=== PATIENT | male | born 1985 | race African-American/Black ===

== ENCOUNTER 2016-11-14 01:03 | Emergency (ER) | payer SELFPAY ==
[2016-11-14 04:35] LABS: Urine Drugs of Abuse Note Disclamer
[2016-11-14 04:47] LABS: Basophils % (Auto) 0.6 % (0.0-1.8); Eosinophils % (Auto) 1.3 % (0.0-4.3); Hemoglobin 16.5 gm/dl (11.8-15.2); Mean Corpuscular HGB Conc 34 % (32-34); Mean Corpuscular Hemoglobin 32 pg (28-32); Mean Corpuscular Volume 94 fl (84-94); Platelet Count 220 K/mm3 (140-440); Red Blood Count 5.12 M/mm3 (3.65-5.03); Red Cell Distribution Width 12.5 % (13.2-15.2); White Blood Count 7.7 K/mm3 (4.5-11.0)
[2016-11-14 04:59] LABS: Anion Gap 20 mmol/L; Blood Urea Nitrogen 12 mg/dL (9-20); Calcium 8.9 mg/dL (8.4-10.2); Carbon Dioxide 25 mmol/L (22-30); Chloride 101.8 mmol/L (98-107); Glucose 98 mg/dL (75-100); Potassium 3.6 mmol/L (3.6-5.0); Sodium 143 mmol/L (137-145)
[2016-11-14 05:13] LABS: Bilirubin,Urine NEG (Negative); Blood,Urine NEG (Negative); Ketones,Urine 20 mg/dL (Negative); Leukocyte Esterase,Urine NEG (Negative); Mucus,Urine 3+ /HPF; Nitrite,Urine NEG (Negative); Protein,Urine <15 mg/dL mg/dL (Negative); Urobilinogen,Urine < 2.0 mg/dL (<2.0); WBC,Urine < 1.0 /HPF (0.0-6.0)
--- NOTE | 2016-11-14 13:20 | Emergency Department Report ---
ED Psych HPI - General Chief Complaint: Psych Stated Complaint: MENTAL HEALTH EVALUATION Time Seen by Provider: 11/14/16 13:11 Source: patient Mode of arrival: Ambulatory - History of Present Illness Initial Comments: Patient is a 31-year-old male with a history of schizophrenia presenting to the ER with increased paranoia and suicidal ideations. Patient reports he takes Zyprexa 5 mg for the last 7 years, dosage has been weaned down over the last few years due to increased somnolence. However, patient reports last night he had severe paranoia in reports when he has severe paranoia he has suicidal thoughts and tendencies. Patient also reports hearing voices however he reports heis different between reality and not reality. She currently does not work. Patient currently also lives alone. Otherwise he has been his normal state of health, no fevers chills, nausea, vomiting, headache, dizziness, chest pain, shortness of breath, abdominal pain, extremity swelling or pain, travel, or sick contacts - Related Data Previous Rx's Medication Instructions Recorded Last Taken Type Benztropine [Cogentin] 0.5 mg PO BID #30 tab 11/16/16 Unknown Rx Benztropine [Cogentin] 0.5 mg PO HS #30 tablet 11/16/16 Unknown Rx Olanzapine [Zyprexa] 5 mg PO Q24HR #20 tablet 11/16/16 Unknown Rx Allergies Allergy/AdvReac Type Severity Reaction Status Date / Time No Known Allergies Allergy Verified 11/18/13 06:15 ED Review of Systems ROS: Stated complaint: MENTAL HEALTH EVALUATION Other details as noted in HPI Comment: All other systems reviewed and negative ED Past Medical Hx - Past Medical History Previous Medical History?: Yes Hx Congestive Heart Failure: No Hx Diabetes: No Hx Psychiatric Treatment: Yes (paranoia, and depression per pt.) Hx Asthma: No Hx COPD: No Additional medical history: unknown - Surgical History Past Surgical History?: No Additional Surgical History: unknown - Social History Smoking Status: Never Smoker - Medications Home Medications: Home Medications Medication Instructions Recorded Confirmed Last Taken Type Benztropine [Cogentin] 0.5 mg PO BID #30 tab 11/16/16 Unknown Rx Benztropine [Cogentin] 0.5 mg PO HS #30 tablet 11/16/16 Unknown Rx Olanzapine [Zyprexa] 5 mg PO Q24HR #20 tablet 11/16/16 Unknown Rx ED Physical Exam - General Limitations: No Limitations General appearance: alert, in no apparent distress - Head Head exam: Present: atraumatic, normocephalic - Eye Eye exam: Present: normal appearance, PERRL, EOMI Pupils: Present: normal accommodation - ENT ENT exam: Present: mucous membranes moist - Neck Neck exam: Present: normal inspection - Respiratory Respiratory exam: Present: normal lung sounds bilaterally. Absent: respiratory distress - Cardiovascular Cardiovascular Exam: Present: regular rate, normal rhythm. Absent: systolic murmur, diastolic murmur, rubs, gallop - GI/Abdominal GI/Abdominal exam: Present: soft, normal bowel sounds - Rectal Rectal exam: Present: deferred - Extremities Exam Extremities exam: Present: normal inspection - Back Exam Back exam: Present: normal inspection - Neurological Exam Neurological exam: Present: alert, oriented X3 - Psychiatric Psychiatric exam: Present: normal affect, normal mood, suicidal ideation. Absent: depressed, agitated, anxious, flat affect, homicidal ideation - Skin Skin exam: Present: warm, dry, intact, normal color. Absent: rash ED Course Vital Signs 11/14/16 11/14/16 11/14/16 04:10 12:30 21:37 Temperature 98.1 F 98.7 F 98.6 F Pulse Rate 70 79 80 Respiratory 18 16 20 Rate Blood Pressure 139/96 Blood Pressure 137/88 129/79 [Right] O2 Sat by Pulse 97 99 99 Oximetry 11/15/16 11/15/16 11/16/16 11:04 19:00 08:03 Temperature 98.3 F 98.6 F 98.3 F Pulse Rate 111 H 95 H 70 Respiratory 18 18 20 Rate Blood Pressure Blood Pressure 124/87 121/86 125/85 [Right] O2 Sat by Pulse 98 97 100 Oximetry ED Medical Decision Making - Lab Data Result diagrams: 11/14/16 04:18 11/14/16 04:18 - Medical Decision Making Pt made 1013 Labs reviewed, WNL I reviewed patients Olanzapine 5mg pill bottle, there was no prescription tag on it and the drugs are by one year. Plenty of pills in bottle, doubtful patient is compliant on medications Psych consult appreciated, awaiting to see Dr Aiken for further recs Pt to be discharged home to [facility] with clif jimenes and [facility] follow up as outpatient Critical care attestation.: If time is entered above; I have spent that time in minutes in the direct care of this critically ill patient, excluding procedure time. ED Disposition Clinical Impression: Schizophrenia, Paranoia, Suicidal ideation Disposition: DC-01 TO HOME OR SELFCARE Is pt being admited?: No Condition: Stable Prescriptions: Benztropine [Cogentin] 0.5 mg PO BID #30 tab Olanzapine [Zyprexa] 5 mg PO Q24HR #20 tablet Referrals: DEA COLON MD, PHD [Staff Physician] - ROSE NOLAN [employer]ER-C [Advanced Practice Nurse] - 2-3 Days PRIMARY CARE, [Primary Care Provider] - 3-5 Days Forms: Work/School Release Form(ED)
--- NOTE | 2016-11-15 11:13 | Consultation ---
History of Present Illness - Reason for Consult Consult date: 11/15/16 Reason for consult: Mental Health Evaluation Requesting physician: LINH SHELLEY - Chief Complaint Chief complaint: "Need more medication" - History of Present Psychiatric Illness Patient is a 31-year-old male with a history of schizophrenia presenting to the ER with increased paranoia and suicidal ideations. Today patient is calm and cooperative during assessment. He stated that he came to [facility], because he felt paranoid. He stated that he take Zyprexa 5 mg HS for schizophrenia. He stated that he finally got some rest last night and feel better. He stated that his current Zyprexa regimen has . He stated that he has not seen a psychiatrist in a year. He denies SI/HI's and depression symptoms. He admit to intermittent auditory hallucinations. He denies recreational drug use and excessive alcohol consumption. Medications and Allergies Allergies Allergy/AdvReac Type Severity Reaction Status Date / Time No Known Allergies Allergy Verified 11/18/13 06:15 Home Medications Medication Instructions Recorded Confirmed Last Taken Type No Known Home Medications [No 11/21/13 11/14/16 Unknown History Reported Home Medications] Mental Status Exam - Vital signs Last Vital Signs Temp 98.3 F 11/15/16 11:04 Pulse 111 H 11/15/16 11:04 Resp 18 11/15/16 11:04 BP 124/87 11/15/16 11:04 Pulse Ox 98 11/15/16 11:04 - Exam Narrative exam: ROS (-) psychosis MSE: Appearance: calm, cooperative Behavior: good eye contact Speech: regular rate and tone Mood: "okay" Affect: congruent to mood Thought Process: linear Thought Content: denies SI/HI's and AH's (intermittently) Motor Activity: ambulatory Cognition: A/O x3 Insight: fair Judgment: fair Results Result Diagrams: 11/14/16 04:18 11/14/16 04:18 All other labs normal. Assessment and Plan Assessment and plan: Impression: Historial Dx Schizophrenia Paranoid Type. Today patient is calm and cooperative during assessment. He stated that he came to [facility] because he felt paranoid. Intermittent auditory hallucinations. Denies SI/HI's. Recommendation/Plan: Evaluate 1013 in 24 hours and gather collateral for proper dispo. Start Zyprexa 5 mg PO HS for Schizophrenia and Cogentin 0.5 mg PO HS for EPS prevention. Discussed possible metabolic side effects of antipsychotics with patient.
[2016-11-15] MEDS ORDERED: COGENTIN PO SCH (22:00)
[2016-11-16 08:04] VITALS: BP 125/85
--- NOTE | 2016-11-16 14:35 | Progress Note ---
Subjective - Reason for Consult Consult date: 11/16/16 Reason for consult: follow up - Chief Complaint Chief complaint: "I'm doing better" Patient is a 31-year-old male with a history of schizophrenia presenting to the ER with increased paranoia and suicidal ideations. Today patient is calm and cooperative during assessment. He stated that he came to [facility], because he felt paranoid but today he is feeling better, less paranoid. He reports chronic auditory hallucinations but is not distressed by them and "has gotten used to them." He stated that he has not seen a psychiatrist in a year. He restarted Zyprexa. He denies side effects. He denies SI/HI's and depression symptoms. He is interested in outpatient treatment. He also reports he would like to move in with his cousins for a while. Mental Status Exam - Vital signs Last Vital Signs Temp 98.3 F 11/16/16 08:03 Pulse 70 11/16/16 08:03 Resp 20 11/16/16 08:03 BP 125/85 11/16/16 08:03 Pulse Ox 100 11/16/16 08:03 - Exam Narrative exam: MSE: Appearance: calm, cooperative Behavior: good eye contact Speech: regular rate and tone Mood: "good" Affect: appropriate Thought Process: linear Thought Content: denies SI/HI's and AH's (intermittently, non commanding, non distressing) Motor Activity: ambulatory, no abnormal movements Cognition: A/O x3 Insight: fair Judgment: fair Assessment and Plan Impression: History of Dx Schizophrenia, Paranoid Type. Today patient is calm and cooperative during assessment. He stated that he came to [facility] because he felt paranoid. Intermittent auditory hallucinations which are non commanding and not distressing. Paranoia resolving. Denies SI/HI's. There are no acute safety concerns. Recommendation/Plan: Verify cousins will allow him to go to their home. Follow up at the [facility] for outpatient psychiatric treatment. Recommend walk in for open access this week Discharge with prescription for psychiatric medications which he has taken previously, Zyprexa 5mg hs and Cogentin 0.5mg hs
--- NOTE | 2016-11-16 17:12 | Emergency Department Report ---
HPI - General Chief Complaint: Psych Time Seen by Provider: 11/14/16 13:11 ED Past Medical Hx - Past Medical History Previous Medical History?: Yes Hx Congestive Heart Failure: No Hx Diabetes: No Hx Psychiatric Treatment: Yes (paranoia, and depression per pt.) Hx Asthma: No Hx COPD: No Additional medical history: unknown - Surgical History Past Surgical History?: No Additional Surgical History: unknown - Social History Smoking Status: Never Smoker - Medications Home Medications: Home Medications Medication Instructions Recorded Confirmed Last Taken Type Benztropine [Cogentin] 0.5 mg PO HS #30 tablet 11/16/16 Unknown Rx Olanzapine [Zyprexa] 5 mg PO Q24HR #20 tablet 11/16/16 Unknown Rx ED Review of Systems ROS: Stated complaint: MENTAL HEALTH EVALUATION Other details as noted in HPI Physical Exam - Physical Exam Vital Signs: Vital Signs 11/14/16 11/14/16 11/14/16 04:10 12:30 21:37 Temperature 98.1 F 98.7 F 98.6 F Pulse Rate 70 79 80 Respiratory 18 16 20 Rate Blood Pressure 139/96 Blood Pressure 137/88 129/79 [Right] O2 Sat by Pulse 97 99 99 Oximetry 11/15/16 11/15/16 11/16/16 11:04 19:00 08:03 Temperature 98.3 F 98.6 F 98.3 F Pulse Rate 111 H 95 H 70 Respiratory 18 18 20 Rate Blood Pressure Blood Pressure 124/87 121/86 125/85 [Right] O2 Sat by Pulse 98 97 100 Oximetry ED Course Vital Signs 11/14/16 11/14/16 11/14/16 04:10 12:30 21:37 Temperature 98.1 F 98.7 F 98.6 F Pulse Rate 70 79 80 Respiratory 18 16 20 Rate Blood Pressure 139/96 Blood Pressure 137/88 129/79 [Right] O2 Sat by Pulse 97 99 99 Oximetry 11/15/16 11/15/16 11/16/16 11:04 19:00 08:03 Temperature 98.3 F 98.6 F 98.3 F Pulse Rate 111 H 95 H 70 Respiratory 18 18 20 Rate Blood Pressure Blood Pressure 124/87 121/86 125/85 [Right] O2 Sat by Pulse 98 97 100 Oximetry ED Medical Decision Making - Lab Data Result diagrams: 11/14/16 04:18 11/14/16 04:18 - Medical Decision Making Patient's 1013 has been rescinded by psychiatrist Dr. Slater. Pt agrees he is ready to dc home. He will have residential with his relatives Critical care attestation.: If time is entered above; I have spent that time in minutes in the direct care of this critically ill patient, excluding procedure time. ED Disposition Clinical Impression: Paranoia, Suicidal ideation Disposition: DC-01 TO HOME OR SELFCARE Is pt being admited?: No Does the pt Need Aspirin: No Condition: Stable Prescriptions: Olanzapine [Zyprexa] 5 mg PO Q24HR #20 tablet Referrals: PRIMARY CARE, [Primary Care Provider] - 3-5 Days DEA COLON MD, PHD [Staff Physician] - ROSE NOLAN, INDUSTRIAL NURSE-C [Advanced Practice Nurse] - 2-3 Days Forms: Work/School Release Form(ED)
== END 2016-11-16 17:54 | disposition home or self-care (01) ==
LOC: ED 01:03 → EEVIPCON 01:03 → ED 11-16 17:54
DX: F20.0 Paranoid schizophrenia (principal); R45.851 Suicidal ideations
CPT/HCPCS: 36415; 80048; 80307; 81001; 85025; 99284; G0480; 80320